=== PATIENT | male | born 1975 | race Caucasian/White ===

== ENCOUNTER 2019-01-02 23:25 | Emergency (ER) | payer OTHER ==
[~2019-01-02] VITALS: Ht 175.3 cm; Wt 68.9 kg
[2019-01-02 23:30] VITALS: Ht 175.3 cm; Wt 68.9 kg
[2019-01-03 00:30] LABS: BASOPHIL % 0.4 % (0-2); PLATELET COUNT 230 x10^3mcL (130-400); RED CELL DISTRIBUTION WIDTH 13.2 % (11.5-14.5)
[2019-01-03 01:04] LABS: CALCIUM 8.3 mg/dL (8.5-10.1); CARBON DIOXIDE 27.6 mmol/L (21-32); CHLORIDE SERUM 99 mmol/L (98-107); CREATININE SERUM 1.3 mg/dL (0.7-1.3); GFR1 > 60 mL/min; GLUCOSE SERUM 130 mg/dL (74-106); POTASSIUM SERUM 4.1 mmol/L (3.5-5.1); SODIUM SERUM 137 mmol/L (136-145)
[2019-01-03 01:07] LABS: ALBUMIN 3.8 g/dL (3.4-5.0); ALKALINE PHOSPHATASE 59 U/L (46-116); ALT/SGPT 40 U/L (16-63); AST/SGOT 18 U/L (15-37); BILIRUBIN TOTAL 0.22 mg/dL (0.20-1.00); LIPASE 192 IU/L (73-393); TOTAL PROTEIN, SERUM 7.1 g/dL (6.4-8.2)
[2019-01-03 01:25] LABS: AMPHETAMINE QUAL UR NONE DETECTED (See below)
[2019-01-03 02:59] VITALS: BP 109/65
== END 2019-01-03 02:59 | disposition home or self-care (01) ==
LOC: ED 23:25
PROVIDERS: Emergency Medicine
DX: R07.89 Other chest pain (principal); R51 Headache; R00.2 Palpitations
CPT/HCPCS: 36415; 85378; G0480; J7030